=== PATIENT | male | born 1960 | race Caucasian/White ===

== ENCOUNTER 2016-08-17 08:00 | Outpatient (RCR) | payer OTHER | END 2016-11-15 | disposition home or self-care (01) | LOC: CARDREHAB 08:00 | DX: Z51.89 Encounter for other specified aftercare (principal); Z95.5 Presence of coronary angioplasty implant and graft ==

== ENCOUNTER 2021-08-12 07:59 | Outpatient (RCR) | payer OTHER | END 2021-09-04 23:59 | disposition home or self-care (01) | LOC: PT 07:59 | DX: M17.11 Unilateral primary osteoarthritis, right knee (principal); Z96.651 Presence of right artificial knee joint ==

== ENCOUNTER 2021-09-08 14:30 | Outpatient (RCR) | payer OTHER | END 2021-10-05 | disposition home or self-care (01) | LOC: PT | DX: M17.11 Unilateral primary osteoarthritis, right knee (principal) ==